=== PATIENT | female | born 1990 | race Caucasian/White ===

== ENCOUNTER 2016-12-10 18:54 | Emergency (ER) | payer OTHER ==
[~2016-12-10] VITALS: Ht 167.6 cm; Wt 58.3 kg
[~2016-12-10 18:54] MED LIST: BUTA1CAP17 PO
[2016-12-10 18:57] VITALS: TEMP 36.8; Ht 167.6 cm; Wt 58.3 kg
[2016-12-10] MEDS ORDERED: MONT1TAB3 PO (20:50)
[2016-12-10] MEDS ORDERED: CETI10TA84 PO (20:50)
[2016-12-10] MEDS ORDERED: MoRPHine SULFATE 10 MG/ML CARP/VIAL IV STA (21:18)
[2016-12-10] MEDS ORDERED: ONDANSETRON INJ 2 MG/ML 2 ML VIAL IV STA (21:18)
[2016-12-10 21:26] LABS: BASO % 0.3 %; BASO ABS # 0.02 K/uL (0-0.2); COMPLETE YES; EOS % 1.1 %; HEMATOCRIT 39.4 % (37-47); IG% 0.2 %; LYMPH % 25.9 %; LYMPH ABS # 1.62 K/uL (1.2-3.4); MEAN CELL VOLUME 89.1 fL (80-100); MEAN CORPUSCULAR HEMOGLOBIN 30.8 pg (25-34); MEAN CORPUSCULAR HGB CONC 34.5 g/dl (32-36); MEAN PLATELET VOLUME 10.7 fL (7.4-10.4); MONO % 10.4 %; NEUT % 62.1 %; PLATELET COUNT 201 K/uL (130-400); RED BLOOD COUNT 4.42 M/uL (4.2-5.4); WHITE BLOOD COUNT 6.25 K/uL (4.8-10.8)
[2016-12-10] MEDS ORDERED: MoRPHine SULFATE 4 MG/ML 1 ML CARP\\VIAL ONE (21:39)
[2016-12-10] MEDS ORDERED: MoRPHine SULFATE 2 MG/ML CARP ONE (21:39)
[2016-12-10 21:52] LABS: ALT/SGPT 16 U/L (12-78); BLOOD UREA NITROGEN 6 mg/dl (7-18); BUN/CREATININE RATIO 8.7 (10-20); CALCIUM 8.7 mg/dl (8.5-10.1); CARBON DIOXIDE 29 mmol/L (21-32); CHLORIDE 106 mmol/L (98-107); CREATININE 0.67 mg/dl (0.60-1.20); GLUCOSE 93 mg/dl (70-99); POTASSIUM 3.6 mmol/L (3.5-5.1); SODIUM 141 mmol/L (136-145)
[2016-12-10 21:55] LABS: ALKALINE PHOSPHATASE 64 U/L (45-117); AST/SGOT 9 U/L (15-37)
[2016-12-10 22:01] LABS: URINE APPEARANCE CLEAR (CLEAR); URINE BILIRUBIN NEG (NEG); URINE COLOR YELLOW; URINE EPITHELIAL CELL AUTO >30 /lpf (0-5); URINE NITRITE NEG (NEG); URINE SPECIFIC GRAVITY 1.005 (1.000-1.030); UROBILINOGEN NEG (NEG); ZZUR CULT IF INDIC CLEAN CATCH NO
[2016-12-10 22:02] LABS: MANUAL MICROSCOPIC REQUIRED? NO; REVIEW REQ? NO
[2016-12-10] MEDS ORDERED: HYDROmorphone INJ 0.5 MG/0.5 ML SYR IV STA (22:03)
[2016-12-10] MEDS ORDERED: OPTIRAY 320 IV PRN (22:30)
--- NOTE | 2016-12-10 23:03 | DIAGNOSTIC IMAGING REPORT ---
CT OF THE ABDOMEN AND PELVIS WITH CONTRAST CLINICAL HISTORY: Right lower quadrant pain. COMPARISON STUDY: CT of the abdomen and pelvis January 07, 2016. TECHNIQUE: Following IV administration of 116 mL of Optiray-320, axial images of the abdomen and pelvis were obtained from the lung bases to the proximal femurs. Images were reviewed in the axial, sagittal, and coronal planes. IV contrast was administered without complication. CT DOSE: 270.89 mGy.cm FINDINGS: Lung bases are clear. The liver, spleen, adrenal glands and pancreas are normal. There is a 2 mm right renal calculus. There are no ureteral calculi. There is no hydronephrosis. The caliber and wall thickness of small and large bowel are normal. The appendix is normal. An intrauterine device is appropriately positioned. A 2.5 cm low-attenuation right adnexal lesion is present. There is no pneumatosis, free air or portal venous gas. Skeletal structures are unremarkable. IMPRESSION: 1. No acute process within the abdomen or pelvis. Normal appendix. 2. 2.5 cm cyst or dominant follicle within the right ovary. 3. 2 mm right renal calculus. No ureteral calculi or hydronephrosis. 4. Small amount of fluid within the pelvis. Electronically signed by: Mainor Sibley M.D. 12/10/2016 11:02 PM Dictated Date/Time: 12/10/2016 10:58 PM
--- NOTE | 2016-12-10 23:29 | EMERGENCY ROOM VISIT NOTE ---
History First contact with patient: 20:51 Chief Complaint: ABDOMINAL PAIN Stated Complaint: ABDOMINAL PAIN, VOMITING Nursing Triage Summary: Pt complains of lower abdominal pain radiating to right flank. It started Wednesday. +vomiting Hx kidney stones History of Present Illness The patient is a 26 year old female w/ previous hx of nephrolithiasis 2 yrs ago , Hx of IUD placement who presents to the Emergency Room with complaints of progressive Lower abdominal pain x3 days, worse with moving. particularly in the suprapubic area. .She also reports nausea vomiting, fatigue, lightheaded, increased urinary urgency. Pt denies headache, fevers, chills, chest pain, shortness of breath, diarrhea, pain with urination, and melena. Review of Systems See HPI for pertinent positives & negatives. A total of 10 systems reviewed and were otherwise negative. Past Medical/Surgical History Medical Problems: (1) Kidney stones (2) Ovarian cyst Family History Patient reports no known family medical history. Social History Smoking Status: Former Smoker Marital Status: in relationship Housing Status: lives with family Occupation Status: employed Current/Historical Medications Scheduled Cetirizine (Zyrtec), 10 MG PO DAILY Montelukast Sodium (Singulair), 10 MG PO QPM Scheduled PRN Tpvgntgaft-Aolfziejpxrzq-Hiexk (Fioricet), 1 CAP PO Q4H PRN for Migraine Allergies Coded Allergies: No Known Allergies (Unverified , 12/10/16) Physical Exam Vital Signs Date Time Temp Pulse Resp B/P Pulse Ox O2 Delivery O2 Flow Rate FiO2 12/10/16 18:57 36.8 97 16 132/86 93 Room Air Physical Exam GENERAL: alert, well appearing, well nourished, no distress, non-toxic EYE EXAM: normal conjunctiva, PERRL and EOM's grossly intact NECK: supple, no nuchal rigidity, no adenopathy, non-tender LUNGS: Clear to auscultation. Normal chest wall mechanics HEART: no murmurs, S1 normal and S2 normal ABDOMEN: abdomen tenderness to palpation, suprapubic region and RLQ, normo- active bowel sounds, no masses, no rebound or guarding. SKIN: no rashes and no bruising UPPER EXTREMITIES: upper extremities are grossly normal. LOWER EXTREMITIES: No pitting edema. Medical Decision & Procedures ER Provider Diagnostic Interpretation: CT OF THE ABDOMEN AND PELVIS WITH CONTRAST CLINICAL HISTORY: Right lower quadrant pain. COMPARISON STUDY: CT of the abdomen and pelvis January 07, 2016. TECHNIQUE: Following IV administration of 116 mL of Optiray-320, axial images of the abdomen and pelvis were obtained from the lung bases to the proximal femurs. Images were reviewed in the axial, sagittal, and coronal planes. IV contrast was administered without complication. CT DOSE: 270.89 mGy.cm FINDINGS: Lung bases are clear. The liver, spleen, adrenal glands and pancreas are normal. There is a 2 mm right renal calculus. There are no ureteral calculi. There is no hydronephrosis. The caliber and wall thickness of small and large bowel are normal. The appendix is normal. An intrauterine device is appropriately positioned. A 2.5 cm low-attenuation right adnexal lesion is present. There is no pneumatosis, free air or portal venous gas. Skeletal structures are unremarkable. IMPRESSION: 1. No acute process within the abdomen or pelvis. Normal appendix. 2. 2.5 cm cyst or dominant follicle within the right ovary. 3. 2 mm right renal calculus. No ureteral calculi or hydronephrosis. 4. Small amount of fluid within the pelvis. Laboratory Results 12/10/16 21:14 Red Blood Count 4.42, Mean Corpuscular Volume 89.1, Mean Corpuscular Hemoglobin 30.8, Mean Corpuscular Hemoglobin Concent 34.5, Mean Platelet Volume 10.7, Neutrophils (%) (Auto) 62.1, Lymphocytes (%) (Auto) 25.9, Monocytes (%) (Auto) 10.4, Eosinophils (%) (Auto) 1.1, Basophils (%) (Auto) 0.3, Neutrophils # (Auto ) 3.88, Lymphocytes # (Auto) 1.62, Monocytes # (Auto) 0.65, Eosinophils # (Auto ) 0.07, Basophils # (Auto) 0.02 12/10/16 21:14 Test 12/10/16 21:13 12/10/16 21:14 Urine Color YELLOW Urine Appearance CLEAR (CLEAR) Urine pH 7.0 (4.5-7.5) Urine Specific [place] 1.005 (1.000-1.030) Urine Protein NEG (NEG) Urine Glucose (UA) NEG (NEG) Urine Ketones TRACE (NEG) Urine Occult Blood NEG (NEG) Urine Nitrite NEG (NEG) Urine Bilirubin NEG (NEG) Urine Urobilinogen NEG (NEG) Urine Leukocyte Esterase NEG (NEG) Urine WBC (Auto) 1-5 /hpf (0-5) Urine RBC (Auto) 0-4 /hpf (0-4) Urine Hyaline Casts (Auto) 1-5 /lpf (0-5) Urine Epithelial Cells (Auto) >30 /lpf (0-5) Urine Bacteria (Auto) NEG (NEG) Urine Test NEG (NEG) White Blood Count 6.25 K/uL (4.8-10.8) Red Blood Count 4.42 M/uL (4.2-5.4) Hemoglobin 13.6 g/dL (12.0-16.0) Hematocrit 39.4 % (37-47) Mean Corpuscular Volume 89.1 fL (80-100) Mean Corpuscular Hemoglobin 30.8 pg (25-34) Mean Corpuscular Hemoglobin Concent 34.5 g/dl (32-36) Platelet Count 201 K/uL (130-400) Mean Platelet Volume 10.7 fL (7.4-10.4) Neutrophils (%) (Auto) 62.1 % Lymphocytes (%) (Auto) 25.9 % Monocytes (%) (Auto) 10.4 % Eosinophils (%) (Auto) 1.1 % Basophils (%) (Auto) 0.3 % Neutrophils # (Auto) 3.88 K/uL (1.4-6.5) Lymphocytes # (Auto) 1.62 K/uL (1.2-3.4) Monocytes # (Auto) 0.65 K/uL (0.11-0.59) Eosinophils # (Auto) 0.07 K/uL (0-0.5) Basophils # (Auto) 0.02 K/uL (0-0.2) RDW Standard Deviation 41.7 fL (36.4-46.3) RDW Coefficient of Variation 12.8 % (11.5-14.5) Immature Granulocyte % (Auto) 0.2 % Immature Granulocyte # (Auto) 0.01 K/uL (0.00-0.02) Anion Gap 6.0 mmol/L (3-11) Est Creatinine Clear Calc Drug Dose 115.1 ml/min Estimated GFR () 138.6 Estimated GFR (Non- 119.6 BUN/Creatinine Ratio 8.7 (10-20) Calcium Level 8.7 mg/dl (8.5-10.1) Total Bilirubin 0.5 mg/dl (0.2-1) Direct Bilirubin < 0.1 mg/dl (0-0.2) Aspartate Amino Transf (AST/SGOT) 9 U/L (15-37) Alanine Aminotransferase (ALT/SGPT) 16 U/L (12-78) Alkaline Phosphatase 64 U/L (45-117) Total Protein 7.6 gm/dl (6.4-8.2) Albumin 4.3 gm/dl (3.4-5.0) Lipase 114 U/L (73-393) Medications Administered Medications (Trade) Dose Ordered Sig/Florentino Route Start Time Stop Time Status Last Admin Dose Admin Ondansetron HCl (Zofran Inj) 4 mg NOW STAT IV 12/10/16 21:18 12/10/16 21:21 DC 12/10/16 21:36 4 MG Morphine Sulfate (MoRPHine SULFATE INJ) 2 mg STK-MED ONCE .ROUTE 12/10/16 21:39 12/10/16 21:40 DC 12/10/16 21:36 2 MG Morphine Sulfate (MoRPHine SULFATE INJ) 4 mg STK-MED ONCE .ROUTE 12/10/16 21:39 12/10/16 21:40 DC 12/10/16 21:36 4 MG Hydromorphone HCl (Dilaudid Inj) 0.5 mg NOW STAT IV 12/10/16 22:03 12/10/16 22:05 DC 12/10/16 22:07 0.5 MG Ondansetron HCl (Zofran Inj) 4 mg NOW STAT IV 12/11/16 00:00 12/11/16 00:01 DC 12/11/16 00:06 4 MG Ketorolac Tromethamine (Toradol Inj) 30 mg NOW STAT IV 12/11/16 00:00 12/11/16 00:01 DC 12/11/16 00:05 30 MG Medical Decision 16 yo F w/ hx of nephrolithiasis, Hx of IUD p/w lower abdominal pain, tender in RLQ and suprapubic regions. Differential diagnoses includes but is not limited to gastritis, peptic ulcer disease, GERD, gallbladder disease, pancreatitis, small bowel obstruction, acute coronary syndrome, pericarditis, ischemic bowel, irritable bowel disease, irritable bowel syndrome, appendicitis, diverticulitis, malignancy, hernia, urinary tract infection, torsion, /ectopic , perforation, trauma, infectious. Abdominal Pain -CBC: wnl -BMP: unremarkable -UA: unremarkable , UTI ruled out, no Blood -CT Abdomen/Pelvis: 2.5 cm cyst or dominant follicle within the right ovary. 2 mm right renal calculus. No ureteral calculi or hydronephrosis. Small amount of fluid within the pelvis. -Transvaginal U/S: EFREN intraovarian flow present, Normal ovarian follicles, including dominant follicle Rt ovary, small amt of free fluid in pelvis, likely physiologic -Given Zofran IV 4 mg x2 -Given Morphine 4mg x1, Morphine 2 mg x1 -Given 30 mg Toradol -Given IV Dilaudid .5 mg Abdominal pain likely secondary to Rt Ovarian Cyst. RT renal calculus unlikely to be source of pain. UTI ruled out with UA Upon reevaluation, the patient is feeling better. I discussed the findings and the treatment plan with the patient and advised followup with [employer] Dr. Mclaughlin or PCP. She verbalizes agreement and understanding. She was discharged home. Impression Primary Impression: Right ovarian cyst Additional Impression: Renal calculus, right Departure Information Dispostion Home / Self-Care Referrals Pauline Miles D.O. (PCP) Patient Instructions My [facility] Resident Tracking Resident Involvement: Resident Care Provided Care Provided: Adult ED Problem Qualifiers
--- NOTE | 2016-12-10 23:57 | EMERGENCY ROOM VISIT NOTE ---
History Report prepared by [place]: Torin Ventura Under the Supervision of: Dr. Brandt Gant D.O. First contact with patient: 20:50 Chief Complaint: ABDOMINAL PAIN Stated Complaint: ABDOMINAL PAIN, VOMITING Nursing Triage Summary: Pt complains of lower abdominal pain radiating to right flank. It started Wednesday. +vomiting Hx kidney stones History of Present Illness The patient is a 26 year old female who presents to the Emergency Room with complaints of persistent abdominal pain for the past two days. The pain is described as a burning sensation and is mostly localized to the right lower abdomen. She also complains of nausea and vomiting that occurred yesterday. The pain is not consistent with past UTIs. She has a history of kidney stones. She has not had any previous abdominal surgeries. The patient is sexually active. She denies the possibility of secondary to IUD use. She denies any history of STDs. Patient denies headache, change in vision, fevers, chest pain, shortness of breath, diarrhea, urinary symptoms, melena, abnormal vaginal discharge. Source of History: patient Onset: two days ago Position: abdomen Quality: burning Timing: other (persistent) Associated Symptoms: + nausea, + vomiting, No SOB, No chest pain, No diarrhea, No fevers, No headache, No melena, No urinary symptoms Review of Systems See HPI for pertinent positives & negatives. A total of 10 systems reviewed and were otherwise negative. Past Medical & Surgical Medical Problems: (1) Kidney stones (2) Ovarian cyst Family History Patient reports no known family medical history. Social History Smoking Status: Former Smoker Marital Status: in relationship Housing Status: lives with family Occupation Status: employed Current/Historical Medications Scheduled Cetirizine (Zyrtec), 10 MG PO DAILY Montelukast Sodium (Singulair), 10 MG PO QPM Scheduled PRN Wzhwoxfwcx-Hsaufebwtxejo-Nywfk (Fioricet), 1 CAP PO Q4H PRN for Migraine Allergies Coded Allergies: No Known Allergies (Unverified , 12/10/16) Physical Exam Vital Signs Date Time Temp Pulse Resp B/P Pulse Ox O2 Delivery O2 Flow Rate FiO2 12/10/16 18:57 36.8 97 16 132/86 93 Room Air Physical Exam GENERAL: Sitting up in bed, disheveled, no acute distress. EYE EXAM: normal conjunctiva. OROPHARYNX: no exudate, no erythema, lips, buccal mucosa, and tongue normal and mucous membranes are moist NECK: supple, no nuchal rigidity, no adenopathy, non-tender LUNGS: Clear to auscultation. Normal chest wall mechanics HEART: no murmurs, S1 normal and S2 normal ABDOMEN: abdomen soft, tender to palpation in the right lower quadrant, normo- active bowel sounds, no masses, no rebound or guarding. BACK: Back is symmetrical on inspection and there is no deformity, no midline tenderness, no CVA tenderness. SKIN: no rashes and no bruising UPPER EXTREMITIES: upper extremities are grossly normal. LOWER EXTREMITIES: No pitting edema. NEURO EXAM: Normal sensorium, cranial nerves II-XII grossly intact, normal speech, no gross weakness of arms, no gross weakness of legs. Gross sensation intact. Medical Decision & Procedures ER Provider Diagnostic Interpretation: Radiologist results have been interpreted by the radiologist and reviewed by me. CT OF THE ABDOMEN AND PELVIS WITH CONTRAST CLINICAL HISTORY: Right lower quadrant pain. COMPARISON STUDY: CT of the abdomen and pelvis January 07, 2016. TECHNIQUE: Following IV administration of 116 mL of Optiray-320, axial images of the abdomen and pelvis were obtained from the lung bases to the proximal femurs. Images were reviewed in the axial, sagittal, and coronal planes. IV contrast was administered without complication. CT DOSE: 270.89 mGy.cm FINDINGS: Lung bases are clear. The liver, spleen, adrenal glands and pancreas are normal. There is a 2 mm right renal calculus. There are no ureteral calculi. There is no hydronephrosis. The caliber and wall thickness of small and large bowel are normal. The appendix is normal. An intrauterine device is appropriately positioned. A 2.5 cm low-attenuation right adnexal lesion is present. There is no pneumatosis, free air or portal venous gas. Skeletal structures are unremarkable. IMPRESSION: 1. No acute process within the abdomen or pelvis. Normal appendix. 2. 2.5 cm cyst or dominant follicle within the right ovary. 3. 2 mm right renal calculus. No ureteral calculi or hydronephrosis. 4. Small amount of fluid within the pelvis. Electronically signed by: Mainor Sibley M.D. 12/10/2016 11:02 PM Dictated Date/Time: 12/10/2016 10:58 PM Laboratory Results 12/10/16 21:14 Red Blood Count 4.42, Mean Corpuscular Volume 89.1, Mean Corpuscular Hemoglobin 30.8, Mean Corpuscular Hemoglobin Concent 34.5, Mean Platelet Volume 10.7, Neutrophils (%) (Auto) 62.1, Lymphocytes (%) (Auto) 25.9, Monocytes (%) (Auto) 10.4, Eosinophils (%) (Auto) 1.1, Basophils (%) (Auto) 0.3, Neutrophils # (Auto ) 3.88, Lymphocytes # (Auto) 1.62, Monocytes # (Auto) 0.65, Eosinophils # (Auto ) 0.07, Basophils # (Auto) 0.02 12/10/16 21:14 Test 12/10/16 21:13 12/10/16 21:14 Urine Color YELLOW Urine Appearance CLEAR (CLEAR) Urine pH 7.0 (4.5-7.5) Urine Specific [place] 1.005 (1.000-1.030) Urine Protein NEG (NEG) Urine Glucose (UA) NEG (NEG) Urine Ketones TRACE (NEG) Urine Occult Blood NEG (NEG) Urine Nitrite NEG (NEG) Urine Bilirubin NEG (NEG) Urine Urobilinogen NEG (NEG) Urine Leukocyte Esterase NEG (NEG) Urine WBC (Auto) 1-5 /hpf (0-5) Urine RBC (Auto) 0-4 /hpf (0-4) Urine Hyaline Casts (Auto) 1-5 /lpf (0-5) Urine Epithelial Cells (Auto) >30 /lpf (0-5) Urine Bacteria (Auto) NEG (NEG) Urine Test NEG (NEG) White Blood Count 6.25 K/uL (4.8-10.8) Red Blood Count 4.42 M/uL (4.2-5.4) Hemoglobin 13.6 g/dL (12.0-16.0) Hematocrit 39.4 % (37-47) Mean Corpuscular Volume 89.1 fL (80-100) Mean Corpuscular Hemoglobin 30.8 pg (25-34) Mean Corpuscular Hemoglobin Concent 34.5 g/dl (32-36) Platelet Count 201 K/uL (130-400) Mean Platelet Volume 10.7 fL (7.4-10.4) Neutrophils (%) (Auto) 62.1 % Lymphocytes (%) (Auto) 25.9 % Monocytes (%) (Auto) 10.4 % Eosinophils (%) (Auto) 1.1 % Basophils (%) (Auto) 0.3 % Neutrophils # (Auto) 3.88 K/uL (1.4-6.5) Lymphocytes # (Auto) 1.62 K/uL (1.2-3.4) Monocytes # (Auto) 0.65 K/uL (0.11-0.59) Eosinophils # (Auto) 0.07 K/uL (0-0.5) Basophils # (Auto) 0.02 K/uL (0-0.2) RDW Standard Deviation 41.7 fL (36.4-46.3) RDW Coefficient of Variation 12.8 % (11.5-14.5) Immature Granulocyte % (Auto) 0.2 % Immature Granulocyte # (Auto) 0.01 K/uL (0.00-0.02) Anion Gap 6.0 mmol/L (3-11) Est Creatinine Clear Calc Drug Dose 115.1 ml/min Estimated GFR () 138.6 Estimated GFR (Non- 119.6 BUN/Creatinine Ratio 8.7 (10-20) Calcium Level 8.7 mg/dl (8.5-10.1) Total Bilirubin 0.5 mg/dl (0.2-1) Direct Bilirubin < 0.1 mg/dl (0-0.2) Aspartate Amino Transf (AST/SGOT) 9 U/L (15-37) Alanine Aminotransferase (ALT/SGPT) 16 U/L (12-78) Alkaline Phosphatase 64 U/L (45-117) Total Protein 7.6 gm/dl (6.4-8.2) Albumin 4.3 gm/dl (3.4-5.0) Lipase 114 U/L (73-393) Laboratory results per my review. Medications Administered Medications (Trade) Dose Ordered Sig/Florentino Route Start Time Stop Time Status Last Admin Dose Admin Ondansetron HCl (Zofran Inj) 4 mg NOW STAT IV 12/10/16 21:18 12/10/16 21:21 DC 12/10/16 21:36 4 MG Morphine Sulfate (MoRPHine SULFATE INJ) 2 mg STK-MED ONCE .ROUTE 12/10/16 21:39 12/10/16 21:40 DC 12/10/16 21:36 2 MG Morphine Sulfate (MoRPHine SULFATE INJ) 4 mg STK-MED ONCE .ROUTE 12/10/16 21:39 12/10/16 21:40 DC 12/10/16 21:36 4 MG Hydromorphone HCl (Dilaudid Inj) 0.5 mg NOW STAT IV 12/10/16 22:03 12/10/16 22:05 DC 12/10/16 22:07 0.5 MG Ondansetron HCl (Zofran Inj) 4 mg NOW STAT IV 12/11/16 00:00 12/11/16 00:01 DC 12/11/16 00:06 4 MG Ketorolac Tromethamine (Toradol Inj) 30 mg NOW STAT IV 12/11/16 00:00 12/11/16 00:01 DC 12/11/16 00:05 30 MG ED Course ED COURSE: Vital signs were reviewed and were normal. The patients medical record was reviewed The above diagnostic studies were performed and reviewed. ED treatments and interventions as stated above. 2049: The patient was evaluated by my resident. 2108: The patient was evaluated in room A12b. A complete history and physical examination was performed. 2117: Zofran 4 mg IV, Morphine Sulfate 6 mg IV. 2202: Dilaudid 0.5 mg IV. 3: Patient updated by the resident. Ultrasound ordered. 2315: I personally updated the patient. 0015: Upon reevaluation, the patient is doing well.I discussed my findings with the patient and she understands and agrees with the treatment plan. Based on the patients age, coexisting illnesses, exam and lab findings the decision to treat as an outpatient was made. The patient remained stable while under my care. The patient appeared well at the time of discharge. Medical Decision Differential diagnoses includes but is not limited to gastritis, peptic ulcer disease, GERD, gallbladder disease, pancreatitis, small bowel obstruction, acute coronary syndrome, pericarditis, ischemic bowel, irritable bowel disease, irritable bowel syndrome, appendicitis, diverticulitis, malignancy, hernia, urinary tract infection, torsion, [/ectopic (if female)], perforation, trauma, infectious. Patient is a 18-year-old female who presents the ER for right lower quadrant abdominal pain which is been present since Wednesday. She notes that has been worsening. She has been vomiting intermittently. No previous abdominal surgeries. No fevers. The vomiting did start yesterday and normal bowel movements. UA shows no UTI or hematuria to suggest a stone. CT of her abdomen pelvis shows a large right ovarian cyst. All sound was performed and shows no signs of torsion. Patient was given IV narcotics with improvement of her pain. She is discharged follow-up with her primary care doctor in regards to her right ovarian cyst. Labs were otherwise unremarkable which included an unremarkable CBC, BMP, LFTs, bilirubin and lipase. Ultrasound shows bilateral flow to both ovaries. Patient was updated bedside and discharged with an ovarian cyst follow-up with her primary care doctor. She is instructed not to drive, work, operate heavy machinery for the next 12 hours. Discussed with Pt concerning signs and symptoms to watch out for. Pt was instructed to follow up with their PCP and discussed with the patient their option to return to the ED at anytime for persistent or worsening symptoms. The appropriate anticipatory guidance and out-patient management, including indications for return to the emergency department, were explained at length to the patient and understood. Impression Primary Impression: Ovarian cyst Additional Impression: Right lower quadrant abdominal pain Scribe Attestation The scribe's documentation has been prepared under my direction and personally reviewed by me in its entirety. I confirm that the note above accurately reflects all work, treatment, procedures, and medical decision making performed by me. Departure Information Dispostion Home / Self-Care Referrals Pauline Miles D.O. (PCP) Forms HOME CARE DOCUMENTATION FORM, IMPORTANT VISIT INFORMATION Patient Instructions ED Cyst Ovarian, [facility] Additional Instructions Please follow up with your primary care doctor with in the next 24 hours. Any worsening of your symptoms, please return to the ED immediately. This includes fevers greater than 100.4, worsening pain, vaginal discharge, persistent vomiting or diarrhea, or any other concerning signs or symptoms from your standpoint. Please take Motrin or Tylenol as needed for pain. Problem Qualifiers Primary Impression: Ovarian cyst Laterality: right Qualified Codes: N83.201 - Unspecified ovarian cyst, right side
[2016-12-11] MEDS ORDERED: KETOROLAC TROMETHAMINE 30 MG/ML VIAL IV STA
[2016-12-11] MEDS ORDERED: ONDANSETRON INJ 2 MG/ML 2 ML VIAL IV STA
[2016-12-11 00:57] VITALS: BP 127/81; PULSE 84; O2SAT 95
--- NOTE | 2016-12-11 07:20 | DIAGNOSTIC IMAGING REPORT ---
EXAMINATION: PELVIC ULTRASOUND CLINICAL HISTORY: RLQ PAIN PAIN COMPARISON STUDY: 09/26/2008 FINDINGS: The uterus measured 8 cm. The endometrial stripe measured 4 mm. Intrauterine device present within the central canal. The right ovary measured 3.5 cm with normal vascular flow. 2 cm follicular cysts.. The left ovary measured 2.6 cm maximum dimension with normal vascular flow. There is no ultrasonographic evidence of ovarian torsion. It should be noted that ovarian torsion can be present with normal Doppler ultrasonographic findings. There was no evidence of pathologic free pelvic fluid. IMPRESSION: 2 cm right ovarian cyst. Intrauterine device within the central uterine canal. Otherwise negative study Electronically signed by: Shaheed Rocha M.D. 12/11/2016 7:18 AM Dictated Date/Time: 12/11/2016 7:17 AM
== END 2016-12-11 00:58 | disposition home or self-care (01) ==
LOC: C.EDB 18:55 → C.EDA 12-11 00:58
DX: N83.201 Unspecified ovarian cyst, right side (principal); N20.0 Calculus of kidney; R10.31 Right lower quadrant pain; Z87.442 Personal history of urinary calculi; Z87.891 Personal history of nicotine dependence

== ENCOUNTER 2017-09-16 08:39 | Emergency (ER) | payer OTHER ==
[~2017-09-16] VITALS: Ht 167.6 cm; Wt 60.2 kg
[~2017-09-16 08:39] MED LIST changes: +CETI10TA84 PO; +MONT1TAB3 PO
[2017-09-16 08:41] VITALS: TEMP 36.8; Ht 167.6 cm; Wt 60.2 kg
[2017-09-16] MEDS ORDERED: MoRPHine SULFATE 4 MG/ML 1 ML CARP\\VIAL IV STA ×2 (09:01→11:06)
[2017-09-16] MEDS ORDERED: ONDANSETRON INJ 2 MG/ML 2 ML VIAL IV STA (09:01)
[2017-09-16] MEDS ORDERED: SODIUM CHLORIDE 0.9% 1000ML 1,000 ML IV STA (09:01)
[2017-09-16 09:36] LABS: BASO % 0.4 %; BASO ABS # 0.02 K/uL (0-0.2); EOS % 1.2 %; EOS ABS # 0.07 K/uL (0-0.5); HEMATOCRIT 42.2 % (37-47); HEMOGLOBIN 14.5 g/dL (12.0-16.0); IG# 0.04 K/uL (0.00-0.02); LYMPH % 18.2 %; LYMPH ABS # 1.04 K/uL (1.2-3.4); MEAN CELL VOLUME 90.6 fL (80-100); MEAN CORPUSCULAR HEMOGLOBIN 31.1 pg (25-34); MEAN CORPUSCULAR HGB CONC 34.4 g/dl (32-36); MEAN PLATELET VOLUME 10.5 fL (7.4-10.4); MONO % 8.6 %; MONO ABS # 0.49 K/uL (0.11-0.59); NEUT % 70.9 %; NEUT ABS # 4.04 K/uL (1.4-6.5); PLATELET COUNT 231 K/uL (130-400); RED CELL DISTRIBUTION WIDTH CV 12.8 % (11.5-14.5)
[2017-09-16 09:49] LABS: ALBUMIN 4.1 gm/dl (3.4-5.0); CREATININE 0.77 mg/dl (0.60-1.20); POTASSIUM 4.3 mmol/L (3.5-5.1)
[2017-09-16 09:52] LABS: TOTAL PROTEIN 7.6 gm/dl (6.4-8.2)
--- NOTE | 2017-09-16 10:29 | DIAGNOSTIC IMAGING REPORT ---
ABD/PELVIS WITHOUT FOR STONE CT DOSE: 782.53 mGy.cm HISTORY: Flank pain. Nausea. hx of stones, urinary symptom, pain and vomiting TECHNIQUE: Multiaxial CT images of the abdomen and pelvis were performed without the use of intravenous and oral contrast according to the standard department stone protocol. A dose lowering technique was utilized adhering to the principles of ALARA. COMPARISON STUDY: 12/10/2016 FINDINGS: Lung bases are clear. Liver spleen and pancreas are uniform. There are several nonobstructing renal calcifications bilaterally. There is no evidence for renal hydronephrosis. Mild extrarenal pelves are noted within the kidneys bilaterally unchanged in the prior study. The bowel pattern overall is nonobstructive. The appendix is unremarkable. There is trace amount of radiodense material within the appendix. No evidence for abscess or collection. Several small right and to a lesser extent left ovarian follicular cysts. Trace amount of free fluid within the pelvic cul-de-sac most likely physiologic. Intrauterine device within the central canal the ureters. Bladder is midline. IMPRESSION: 1. The small right and to a lesser extent left ovarian follicular cyst.. 2. Several nonobstructing renal calcifications. 3. No evidence for an obstructing urinary tract calculus. 4. Normal appendix 5. Nonobstructive bowel pattern. The above report was generated using voice recognition software. It may contain grammatical, syntax or spelling errors. Electronically signed by: Shaheed Rocha M.D. 09/16/2017 10:28 AM Dictated Date/Time: 09/16/2017 10:20 AM
[2017-09-16] MEDS ORDERED: PHEN-876 PO (11:10)
[2017-09-16] MEDS ORDERED: ONDA4TAB10 SL (11:10)
[2017-09-16 11:27] VITALS: BP 126/79; PULSE 65; O2SAT 98
--- NOTE | 2017-09-17 16:12 | EMERGENCY ROOM VISIT NOTE ---
ED Visit Note First contact with patient: 08:45 Chief Complaint: Flank pain and urinary symptoms. History of Present Illness: Ms. Fam is a 26-year-old white female who ambulates into the ED complaining of right flank pain, urinary symptoms and nausea/vomiting. Historically patient reports she has a history of kidney stones and ovarian cyst rupture. She reports pain and the symptoms remind her of her previous stone. Patient reports approximately 2 days ago she noted that she started having some intermittent nausea. This was also associated with vaginal itching and discharge, burning urination, increased urinary frequency and urge but no gross hematuria. She reports she has been using Monistat for her vaginal itching and discharge and has had almost complete relief of her discomfort and discharge. This morning after waking approximately one hour ago she reports she had acute onset of right flank pain. Since that time the pain has been constant. She describes her pain as a deep achy sensation. She rates her discomfort 7/10. Her pain is nonradiating. She has some mild relief when she lies in the knee- chest position. She has not identified any aggravating factors related to the pain. She has not taken any medications for pain prior to arrival at the hospital. She continues to have the associated symptoms as noted above but has had noted increase in nausea but did have one episode of vomiting this morning. She denies fevers, chills, sweats, eruptions, skin color changes, upper respiratory tract symptoms, chest pain, shortness of breath, abdominal pain, diarrhea, constipation, vaginal bleeding. Review of Systems: As noted above in history of present illness. All body systems were reviewed and found to be negative as noted above. Past Medical History: As previously noted. Current Medications: Evette Wilkins Allergies to Medications: Patient denies. Social History: Patient is currently employed; she feels safe in her home environment; she denies tobacco use and admits to alcohol use. Physical Examination: Vital Signs: Date Time Temp Pulse Resp B/P (MAP) Pulse Ox O2 Delivery O2 Flow Rate FiO2 09/16/17 11:27 65 18 126/79 98 09/16/17 10:33 93 18 123/82 100 09/16/17 09:21 100 09/16/17 08:41 36.8 115 20 128/81 97 Room Air GENERAL: 26-year-old female in moderate distress due to pain, nontoxic-appearing , afebrile and hemodynamically stable. NEUROLOGICAL: Awake, alert and oriented to person, place and time. Answering questions appropriately and following commands. Normal gait. Good hand eye coordination. No focal motor sensory deficits. SKIN: Warm, dry and pink. No soft tissue eruptions or trauma noted. HEENT: Atraumatic and normocephalic. PERRL. Sclera white and conjunctiva pink. No drainage from naris. Oral cavity moist and pink. Pharynx is nonerythematous or edematous. Speech normal. No lymphadenopathy. Trachea midline. No jugular venous distention. BACK: No tenderness over the bony spine. No CVA tenderness. THORAX: Lungs sounds are clear to auscultation and equal bilaterally with symmetrical chest wall. No wheezing, rales or rhonchi. No crepitus, tenderness , subcutaneous air or deformities noted. HEART: Regular rate and rhythm. No gallops, rubs or murmurs are appreciated. ABDOMEN: Flat, soft and nontender. Positive bowel sounds in all quadrants. No guarding, rigidity or organomegaly. EXTREMITIES: Moves all extremities well on command and with purpose. All distal neurovascular statuses are intact and equal bilaterally. No calf tenderness or cords. ED Course: Patient is assessed as noted above. Patient's medication list was reviewed. Laboratory Testing: Test 09/16/17 09:06 09/16/17 09:10 Range/Units Urine Color YELLOW Urine Appearance CLOUDY CLEAR Urine pH 5.0 4.5-7.5 Urine Specific [place] 1.018 1.000-1.030 Urine Protein NEG NEG Urine Glucose (UA) NEG NEG Urine Ketones NEG NEG Urine Occult Blood NEG NEG Urine Nitrite NEG NEG Urine Bilirubin NEG NEG Urine Urobilinogen NEG NEG Urine Leukocyte Esterase NEG NEG Urine WBC (Auto) 1-5 0-5 /hpf Urine RBC (Auto) 0-4 0-4 /hpf Urine Hyaline Casts (Auto) 1-5 0-5 /lpf Urine Epithelial Cells (Auto) >30 0-5 /lpf Urine Bacteria (Auto) PRESENT NEG Urine Test NEG NEG White Blood Count 5.70 4.8-10.8 K/uL Red Blood Count 4.66 4.2-5.4 M/uL Hemoglobin 14.5 12.0-16.0 g/dL Hematocrit 42.2 37-47 % Mean Corpuscular Volume 90.6 80-100 fL Mean Corpuscular Hemoglobin 31.1 25-34 pg Mean Corpuscular Hemoglobin Concent 34.4 32-36 g/dl Platelet Count 231 130-400 K/uL Mean Platelet Volume 10.5 7.4-10.4 fL Neutrophils (%) (Auto) 70.9 % Lymphocytes (%) (Auto) 18.2 % Monocytes (%) (Auto) 8.6 % Eosinophils (%) (Auto) 1.2 % Basophils (%) (Auto) 0.4 % Neutrophils # (Auto) 4.04 1.4-6.5 K/uL Lymphocytes # (Auto) 1.04 1.2-3.4 K/uL Monocytes # (Auto) 0.49 0.11-0.59 K/uL Eosinophils # (Auto) 0.07 0-0.5 K/uL Basophils # (Auto) 0.02 0-0.2 K/uL RDW Standard Deviation 42.0 36.4-46.3 fL RDW Coefficient of Variation 12.8 11.5-14.5 % Immature Granulocyte % (Auto) 0.7 % Immature Granulocyte # (Auto) 0.04 0.00-0.02 K/uL Sodium Level 137 136-145 mmol/L Potassium Level 4.3 3.5-5.1 mmol/L Chloride Level 107 98-107 mmol/L Carbon Dioxide Level 27 21-32 mmol/L Anion Gap 3.0 3-11 mmol/L Blood Urea Nitrogen 6 7-18 mg/dl Creatinine 0.77 0.60-1.20 mg/dl Est Creatinine Clear Calc Drug Dose 101.8 ml/min Estimated GFR () 121.8 Estimated GFR (Non- 105.1 BUN/Creatinine Ratio 8.3 10-20 Random Glucose 93 70-99 mg/dl Calcium Level 9.0 8.5-10.1 mg/dl Total Bilirubin 0.9 0.2-1 mg/dl Direct Bilirubin 0.2 0-0.2 mg/dl Aspartate Amino Transf (AST/SGOT) 11 15-37 U/L Alanine Aminotransferase (ALT/SGPT) 17 12-78 U/L Alkaline Phosphatase 50 45-117 U/L Total Protein 7.6 6.4-8.2 gm/dl Albumin 4.1 3.4-5.0 gm/dl Lipase 86 73-393 U/L Microbiology Results 09/16/17 Urine Culture: Pending. Noncontrast Abdominal/Pelvic CT: Reviewed by myself and read by the radiologist showing small right and to the Catarino extent left ovarian follicle cyst, several nonobstructing renal calculi, no evidence of obstructing urinary tract calculus, normal-appearing appendix and bowel gas pattern. Patient was hydrated with normal saline and received 4 mg of morphine IV for pain and 4 mg of Zofran IV for nausea. Patient was reassessed total times during her stay in the emergency department. On her last reassessment she requested additional pain medication and received an additional 4 mg of morphine IV. Patient's case was reviewed with Dr. Acosta; we agreed on diagnostic approach, treatment, disposition and plan. Patient was educated about today's findings and instructed on her treatment plan ; she verbalized understanding and agreement with this plan. Clinical Impression: Right flank pain. Urinary tract infection symptoms. Decision-Making: Initially my differential diagnosis I considered uterine calculus, renal obstruction, pyelonephritis, hepatitis, pancreatitis, cholecystitis and other causes. Disposition: Patient discharged home in stable condition accompanied by family member; prior to departure she was reassessed and subjectively reported she was feeling better. She rated her discomfort 4/10 and reported resolution of nausea. Plan: Patient was encouraged use ibuprofen or acetaminophen as needed for pain or alternating every 3 hours for persistent pain. Patient was encouraged stay well-hydrated with increased clear fluids. Patient was prescribed Zofran 4 mg every 6 hours as needed for pain. Patient was prescribed Pyridium for urinary burning and instructed on achieves per Patient was encouraged to follow-up with family physician for recheck in 2-3 days. Patient was encouraged return ED for worsening/uncontrolled pain, fevers, uncontrolled vomiting, worsening urinary symptoms or any new/concerning symptoms.
== END 2017-09-16 11:28 | disposition home or self-care (01) ==
LOC: C.EDB 08:40 → C.EDA 11:28
DX: R10.9 Unspecified abdominal pain (principal); R30.0 Dysuria; R35.0 Frequency of micturition; R11.0 Nausea

== ENCOUNTER 2018-01-12 12:38 | Emergency (ER) | payer BC ==
[~2018-01-12] VITALS: Ht 167.6 cm; Wt 58.4 kg
[~2018-01-12 12:38] MED LIST changes: -BUTA1CAP17 PO; +ONDA4TAB10 SL
[2018-01-12 12:47] VITALS: TEMP 37; Ht 167.6 cm; Wt 58.4 kg
[2018-01-12] MEDS ORDERED: ATV/1 PO (13:10)
[2018-01-12] MEDS ORDERED: LORAZEPAM 2 MG/ML 1 ML VIAL IV STA ×2 (13:29→14:48)
[2018-01-12 13:33] LABS: BASO % 0.4 %; BASO ABS # 0.03 K/uL (0-0.2); EOS % 0.9 %; EOS ABS # 0.06 K/uL (0-0.5); HEMATOCRIT 41.5 % (37-47); HEMOGLOBIN 14.4 g/dL (12.0-16.0); IG# 0.02 K/uL (0.00-0.02); LYMPH % 17.8 %; LYMPH ABS # 1.19 K/uL (1.2-3.4); MEAN CELL VOLUME 89.6 fL (80-100); MEAN CORPUSCULAR HEMOGLOBIN 31.1 pg (25-34); MEAN CORPUSCULAR HGB CONC 34.7 g/dl (32-36); MONO % 6.7 %; MONO ABS # 0.45 K/uL (0.11-0.59); NEUT % 73.9 %; NEUT ABS # 4.95 K/uL (1.4-6.5); PLATELET COUNT 225 K/uL (130-400); RED CELL DISTRIBUTION WIDTH CV 12.7 % (11.5-14.5); RED CELL DISTRIBUTION WIDTH SD 41.4 fL (36.4-46.3)
[2018-01-12 13:50] LABS: ALBUMIN 4.3 gm/dl (3.4-5.0); CALCIUM 8.8 mg/dl (8.5-10.1); CREATININE 0.7 mg/dl (0.60-1.20); POTASSIUM 3.7 mmol/L (3.5-5.1)
[2018-01-12 14:01] LABS: TOTAL PROTEIN 7.6 gm/dl (6.4-8.2)
--- NOTE | 2018-01-12 16:24 | EMERGENCY ROOM VISIT NOTE ---
History Report prepared by Jayjay: Bernardo Al Under the Supervision of: Dr. Ervin Ospina M.D. First contact with patient: 12:54 Chief Complaint: ANXIETY Stated Complaint: PANIC ATTACK, DEPRESSION History of Present Illness The patient is a 27 year old female who presents to the Emergency Room with complaints of constant anxiety beginning 2 hours ago. She has a history of anxiety and depression. She believes being in the hospital is worsening her anxiety. The patient states that she had a panic attack while at work today. She states that she was triggered today by a conversation with her boyfriend today. She states that she knows the conversation should not have her so worked up. The patient took Ativan about two hours ago, but nothing has improved her symptoms. She is on Ativan as needed for panic attacks. She states that she had an anxiety attack yesterday, as well as last week without any identifiable sources. She notes that she had not had a panic attack in nine months prior to these. The patient has a history of frequent migraines and chronic nausea. She currently complains of SOB. Pt denies LOC, fevers, chills, diaphoresis, visual changes, neck pain, chest pain, vomiting, abdominal pain, back pain, melena, hematochezia, urinary symptoms, numbness, weakness, lymphadenopathy, rash, or other complaints. She was previously on Celexa, but was taken off for . 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 The patient reports feeling suicidal last week with a vague plan to overdose, but currently does not feel suicidal. Source of History: patient Onset: 2 hours ago Quality: other (anxiety) Timing: constant Modifying Factors (Worsening): other (being in the hospital) Associated Symptoms: + SOB Review of Systems See HPI for pertinent positives and negatives. A total of ten systems were reviewed and were otherwise negative. Past Medical & Surgical Medical Problems: (1) Kidney stones (2) Ovarian cyst Family History Patient reports no known family medical history. Social History Smoking Status: Current Every Day Smoker Marital Status: in relationship Housing Status: lives with family Occupation Status: employed Current/Historical Medications Scheduled Cetirizine (Zyrtec), 10 MG PO HS Montelukast Sodium (Singulair), 10 MG PO QPM Ondasetron Odt (Zofran Odt), 4 MG SL Q6H Scheduled PRN Lorazepam (Ativan), 1 MG PO Q6H PRN for Anxiety Allergies Coded Allergies: No Known Allergies (Unverified , 01/12/18) Physical Exam Vital Signs Date Time Temp Pulse Resp B/P (MAP) Pulse Ox O2 Delivery O2 Flow Rate FiO2 01/12/18 17:06 102 18 123/83 98 Room Air 01/12/18 15:28 88 20 124/83 98 Room Air 01/12/18 13:57 98 139/98 98 Room Air 01/12/18 12:47 37.0 140 20 161/68 99 Room Air Physical Exam GENERAL: Awake, alert, very anxious appearing, mildly stressed, no distress HENT: Normocephalic, atraumatic. TM's normal. Oropharynx unremarkable. EYES: PERRL. EOMI. Normal conjunctiva. Sclera non-icteric. NECK: Supple. No nuchal rigidity. FROM. No JVD or bruit. RESPIRATORY: Clear. Breath sounds equal. No wheezes. No rhonchi. Normal respiratory effort. CARDIAC: Tachycardic rate. Regular rhythm. No murmurs. No rubs. No JVD. ABDOMEN: Soft, non distended. No tenderness to palpation. No rebound or guarding. No masses. MUSCULOSKELETAL: Unremarkable. No edema. No discoloration. Gross motor strength symmetric. NEURO: Cranial nerves 2-12 grossly intact. Normal sensorium. No sensory or motor deficits noted. Speech normal. No pronator drift. SKIN: No rash or jaundice noted. LYMPH: No adenopathy. PSYCH: Very anxious mood and affect. No suicidal ideation. No homicidal ideation. Tearful. Medical Decision & Procedures Laboratory Results 01/12/18 13:16 Red Blood Count 4.63, Mean Corpuscular Volume 89.6, Mean Corpuscular Hemoglobin 31.1, Mean Corpuscular Hemoglobin Concent 34.7, Mean Platelet Volume 10.0, Neutrophils (%) (Auto) 73.9, Lymphocytes (%) (Auto) 17.8, Monocytes (%) (Auto) 6.7, Eosinophils (%) (Auto) 0.9, Basophils (%) (Auto) 0.4, Neutrophils # (Auto) 4.95, Lymphocytes # (Auto) 1.19, Monocytes # (Auto) 0.45, Eosinophils # (Auto) 0.06, Basophils # (Auto) 0.03 01/12/18 13:16 Test 01/12/18 13:05 01/12/18 13:16 Urine Color YELLOW Urine Appearance CLEAR (CLEAR) Urine pH 5.0 (4.5-7.5) Urine Specific [place] 1.008 (1.000-1.030) Urine Protein NEG (NEG) Urine Glucose (UA) NEG (NEG) Urine Ketones NEG (NEG) Urine Occult Blood NEG (NEG) Urine Nitrite NEG (NEG) Urine Bilirubin NEG (NEG) Urine Urobilinogen NEG (NEG) Urine Leukocyte Esterase NEG (NEG) Urine Opiates Screen NEG (NEG) Urine Methadone, Qualitative NEG (NEG) Urine Barbiturates NEG (NEG) Urine Phencyclidine (PCP) Level NEG (NEG) Ur Amphetamine/Methamphetamine NEG (NEG) MDMA (Ecstasy) Screen NEG (NEG) Urine Benzodiazepines Screen NEG (NEG) Urine Cocaine Metabolite NEG (NEG) Urine Marijuana (THC) POS (NEG) White Blood Count 6.70 K/uL (4.8-10.8) Red Blood Count 4.63 M/uL (4.2-5.4) Hemoglobin 14.4 g/dL (12.0-16.0) Hematocrit 41.5 % (37-47) Mean Corpuscular Volume 89.6 fL (80-100) Mean Corpuscular Hemoglobin 31.1 pg (25-34) Mean Corpuscular Hemoglobin Concent 34.7 g/dl (32-36) Platelet Count 225 K/uL (130-400) Mean Platelet Volume 10.0 fL (7.4-10.4) Neutrophils (%) (Auto) 73.9 % Lymphocytes (%) (Auto) 17.8 % Monocytes (%) (Auto) 6.7 % Eosinophils (%) (Auto) 0.9 % Basophils (%) (Auto) 0.4 % Neutrophils # (Auto) 4.95 K/uL (1.4-6.5) Lymphocytes # (Auto) 1.19 K/uL (1.2-3.4) Monocytes # (Auto) 0.45 K/uL (0.11-0.59) Eosinophils # (Auto) 0.06 K/uL (0-0.5) Basophils # (Auto) 0.03 K/uL (0-0.2) RDW Standard Deviation 41.4 fL (36.4-46.3) RDW Coefficient of Variation 12.7 % (11.5-14.5) Immature Granulocyte % (Auto) 0.3 % Immature Granulocyte # (Auto) 0.02 K/uL (0.00-0.02) Anion Gap 5.0 mmol/L (3-11) Est Creatinine Clear Calc Drug Dose 109.3 ml/min Estimated GFR () 135.7 Estimated GFR (Non- 117.1 BUN/Creatinine Ratio 10.2 (10-20) Calcium Level 8.8 mg/dl (8.5-10.1) Total Bilirubin 1.1 mg/dl (0.2-1) Direct Bilirubin 0.3 mg/dl (0-0.2) Aspartate Amino Transf (AST/SGOT) 12 U/L (15-37) Alanine Aminotransferase (ALT/SGPT) 16 U/L (12-78) Alkaline Phosphatase 55 U/L (45-117) Total Protein 7.6 gm/dl (6.4-8.2) Albumin 4.3 gm/dl (3.4-5.0) Thyroid Stimulating Hormone (TSH) 0.704 uIu/ml (0.300-4.500) Human Chorionic Gonadotropin, Qual NEG (NEG) Salicylates Level < 1.7 mg/dl (2.8-20) Acetaminophen Level < 2 ug/ml (10-30) Ethyl Alcohol mg/dL < 3.0 mg/dl (0-3) Laboratory results reviewed by me Medications Administered Medications (Trade) Dose Ordered Sig/Florentino Route Start Time Stop Time Status Last Admin Dose Admin Lorazepam (Ativan Inj) 1 mg NOW STAT IV 01/12/18 13:29 01/12/18 13:30 DC 01/12/18 13:50 1 MG Hydroxyzine HCl (Vistaril Tab) 50 mg NOW STAT PO 01/12/18 17:24 01/12/18 17:25 DC 01/12/18 17:33 50 MG ECG Per My Interpretation Indication: SOB/dyspnea Rate (beats per minute): 116 Rhythm: sinus tachycardia Findings: other (No ST elevation. No PVCs. Normal intervals. ) ED Course 1323: The patient was evaluated in room A7. A complete history and physical exam was performed. 1329: Ordered Ativan Inj 1 mg IV. 1448: Ordered Ativan Inj 1 mg IV. 1715: I spoke with the psychiatric lead case manager. She feels the patient would be appropriate for outpatient care. A referral was [facility]. 1724: Ordered Vistaril Tab 50 mg PO. 1730: I reevaluated the patient. Discussed results and discharge instructions: she verbalized understanding and agreement. The patient is ready for discharge. Medical Decision Prior records/ancillary studies reviewed. Triage Nursing notes reviewed and agree them. The patient's history was concerning for possible psychiatric disturbance. Differential diagnosis: Etiologies such as mood disorder, infection, hypoglycemia, electrolyte abnormalities, cardiac sources, intracerebral event, toxicologic, neurologic, as well as others were entertained. Physical examination: The physical examination was performed as above. The patient was very anxious. Tachycardia noted. No emergent medical pathologies were noted. ER treatment provided: IV Ativan 1 mg The patient was still anxious. Second dose of IV Ativan was ordered but then the patient was feeling better and declined. On reassessment the patient felt better. Just prior to discharge the patient was given a dose of Atarax so that symptoms do not return. Diagnostic interpretation by me: The electrocardiogram was negative for pathologic change. The labs revealed an unremarkable CBC and chemistry panel. Toxicology screen was unremarkable except for marijuana. Imaging studies: Deferred The patient was evaluated by the psychiatric lead case manager. She has no criteria for involuntary commitment. She prefers to treat this as an outpatient. She will follow-up with her PCP. Outpatient services were arranged and referral will be [place] [facility] [place] [facility] The patient feels comfortable with this plan. If she worsens in any way. She will be back. By the evaluation outlined above other emergent etiologies such as those listed in the differential, as well as others, were deemed relatively unlikely. The patient was educated about the findings as listed above. All questions were answered and the patient was pleased with the treatment. Return instructions were outlined and the patient was discharged in stable condition. Medication Reconcilliation Current Medication List: was personally reviewed by me Blood Pressure Screening Patient's blood pressure: Normal blood pressure Blood pressure disposition: Did not require urgent referral Impression Primary Impression: Moderate mood disorder Additional Impression: Acute anxiety Scribe Attestation The scribe's documentation has been prepared under my direction and personally reviewed by me in its entirety. I confirm that the note above accurately reflects all work, treatment, procedures, and medical decision making performed by me. Departure Information Dispostion Home / Self-Care Referrals Pauline Miles D.O. (PCP) Patient Instructions My [facility] Additional Instructions PSYCHIATRIC INSTRUCTIONS: Continue your current medications. Return to the ER for severe anxiety or depression, thoughts of hurting yourself or others, inability to function, hallucinations, worsening of your condition, or as needed. Follow up with outpatient services as arranged by the psychiatric lead case manager. Follow up with your primary care physician this week for a recheck of your current condition and continued care. Problem Qualifiers
[2018-01-12 17:06] VITALS: BP 123/83; PULSE 102; O2SAT 98
[2018-01-12] MEDS ORDERED: hydrOXYzine HCL 25 MG TAB PO STA (17:24)
== END 2018-01-12 18:14 | disposition home or self-care (01) ==
LOC: C.EDB 12:39 → C.EDA 18:14
DX: F41.9 Anxiety disorder, unspecified (principal); F32.9 Major depressive disorder, single episode, unspecified; Z87.442 Personal history of urinary calculi; F17.210 Nicotine dependence, cigarettes, uncomplicated; Z79.899 Other long term (current) drug therapy

== ENCOUNTER 2022-10-01 13:32 | Inpatient (IN) ==
[2022-10-01] MEDS ORDERED: LIDOCAINE 1% LOCAL 20 ML VIAL INFIL PRN (13:36)
[2022-10-01] MEDS ORDERED: OXYTOCIN 30 UNITS/500 ML BAG IV PRN (13:36)
--- NOTE | 2022-10-01 13:44 | History & Physical Report ---
Date of Service October 01, 2022 Assessment & Plan (1) Uterine contractions during : Plan: 32 y/o at 36w2d here for labor check. GBS neg, RI, Rh pos. Ketones in urine. FHT cat II - tachycardia. Contractions may be due to dehydration. IVF. Encourage PO intake. Will monitor. Last pap 05/2020 No STD Hx History of Present Illness Chief Complaint: contractions Primary Care Provider: Pauline Miles, 32 y/o at 36w2d here for labor check. GBS neg, RI, Rh pos. contractions are described as cramping. 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 last baby was 9 years ago and delivered at 39 weeks. Last pap 05/2020 No STD Hx Allergies Allergy/AdvReac Type Severity Reaction Status Date / Time No Known Allergies Allergy Verified 09/24/22 14:53 Home Medications Medication Instructions Recorded Confirmed Type prenat.vits,omari,ulz-[id number] 1 tab PO HS 03/04/22 09/24/22 History diphenhydramine HCl 25 mg capsule 25 mg PO TID PRN Allergy Symptoms 03/12/22 09/24/22 History (Benadryl) ondansetron HCl 4 mg tablet 4 mg PO Q8H 03/12/22 09/24/22 History Patient History Medical History Anxiety Autism Autism spectrum disorder Depression Kidney stones Migraine Ovarian cyst Surgical History No pertinent past surgical history Family History Mother Cervical cancer Grandmother (Maternal) Uterine cancer Social History Smoking Status: Current every day smoker Tobacco Type: E-cigarettes / Vaping Hx Alcohol Use: No Hx Substance Use: No Preferred Language: Faroese Communication Ability: Effective Uke Driver Required: No Beliefs That Will Affect Care: None marital status: marital status details: Pablo (34) [phone] Current Living Situation: Spouse Current Living Situation Comment: and son current occupational status: employed current occupation: [email or web address] Other Information That Helps Us Care for You: No Feels Safe at Home: Yes Safety Concerns: Feels Safe At This Time Assistive Devices: None Review of Systems All systems reviewed & are unremarkable except as noted in HPI & below Physical Exam Constitutional: WD/WN, vitals as above Respiratory: no increased work of breathing Cardiovascular: clinically well perfused Genitourinary: Manual OB Exam: + cervical dilation 3 cm, + cervical effacement 70% and + station -1 OB Exam Monitor Tracing: + external FHT monitor used and + category II (baseline 170s - tachycardia, moderate variability, no decels) Supervising Physician Co-Signing Physician Notes Resident Physician Supervision Note: I interviewed and examined the patient. Discussed with Dr. Clemente and agree with findings and plan as documented in the note. Any exceptions or clarifications are listed here: Patient had large ketones in her urine - will also do IV hydration and recheck cervix in 2-3 hours. Documented By: Tiffany Quinonez MD, FACOG Resident Activity Tracking Resident Involvement: Resident Care Provided Care Provided: OB Delivery
[2022-10-01] MEDS: LACTATED RINGER'S 1,000 ML IV PRN ×2 (14:05→15:12)
[2022-10-01 14:14] LABS: Hematocrit (blood only) 32.2 % (34.1-44.9); Hemoglobin 10.8 g/dl (12.0-16.0); Mean Corpuscular Hemoglobin 29.2 pg (25.0-34.0); Mean Corpuscular Hgb Conc 33.5 g/dL (32.0-36.0); Mean Platelet Volume 9.9 fL (9.4-12.3); Platelet Count 264 K/uL (130-400); RDW Coefficient of Variation 12.6 % (11.5-14.5); RDW Standard Deviation 39.9 fL (36.4-46.3); White Blood Count 9.71 K/ul (4.8-10.8)
--- NOTE | 2022-10-01 19:52 | Labor Progress Brief Note ---
Date of Service October 01, 2022 Subjective Reason For Note: Routine Evaluation Patient has been examined by me 3 times now over the last 6 hours. contractions have spaced out at times & have not been more intense. patient still pretty comfortable with the contractions and does not need to breathe through them. she is also still able to talk while having a contraction. Review of Systems All systems reviewed & are unremarkable except as noted in HPI & below Assessment & Plan (1) Uterine contractions during : Plan: multip at 37 weeks with episodes of regular but mild contractions and cramping with no appreciable cervical change control manager 6 hours will send patient home at this time. signs and symptoms of labor reviewed with patient and her keep next scheduled appt and call PRN with any questions Admission and Anticipated Discharge Date Admission Date: October 01, 2022 Physical Exam Constitutional: WD/WN, vitals as above Psychiatric: A+Ox3, euthymic affect Genitourinary: Manual OB Exam: + cervical dilation (2-3cm), + cervical effacement 50% and + station -2 OB Exam Monitor Tracing: + external FHT monitor used, + external uterine monitor used, + category I (baseline now in 140- 150 range ) and + normal FHT variability Results & Data ([place]) Vital Signs (Past 12 Hours) Vital Signs Temp Pulse Resp BP 10/01/22 19:10 18 10/01/22 19:10 98.1 F 18 10/01/22 19:09 103 H 126/90 10/01/22 17:00 84 125/76 10/01/22 13:50 108 H 124/85 10/01/22 13:34 98.1 F 110 H 20 149/72 H Coding Level of Care Code 24443 Subseq Obs Care Lvl 1 Diagnoses Uterine contractions during O47.9
== END 2022-10-01 19:50 | disposition home or self-care (01) | DRG 833 ==
LOC: OPB 13:32 → 4S1 13:33

== ENCOUNTER 2022-10-03 01:24 | Inpatient (IN) ==
[2022-10-03] MEDS ORDERED: LIDOCAINE 1% LOCAL 20 ML VIAL INFIL PRN (01:43)
[2022-10-03] MEDS ORDERED: OXYTOCIN 30 UNITS/500 ML BAG IV PRN ×3 (01:43→11:03)
--- NOTE | 2022-10-03 01:46 | History & Physical Report ---
Date of Service October 03, 2022 Assessment & Plan (1) with 37 weeks completed gestation: Plan gross srom. admit, category one, gbs neg. expectant management since starting to have some contractions. epidural on demand. Anticipate . History of Present Illness Chief Complaint: rom Primary Care Provider: Pauline Miles DO Patient is a gp with iup at 37 4/7 weeks who presents to labor and delivery c/o rom. Notes was getting ready for bed, felt some, pressure, heard pop and large gush . Still leaking, clear. no vb. NOtes some cramping earlier and now noting some contractions. +fm. uncomplicated. and Delivery Plans Autism ppx hemorrhage 1st - No transfusion prizer x 2, +boster Flu shot given 06/05/22 - [place] [facility] Labs: Blood Type O Positive 03/25/22 Antibody Screen NEGATIVE 03/25/22 Hemoglobin 10.8 g/dl (12.0-16.0) L 10/01/22 Hematocrit 32.2 % (34.1-44.9) L 10/01/22 Mean Corpuscular Volume 87.0 fL (80.0-100.0) 10/01/22 Platelet Count 264 K/uL (130-400) 10/01/22 Rubella IgG Antibody Immune (Immune) 03/25/22 Rapid Plasma Reagin Nonreactive (Nonreactive) 03/25/22 Hepatitis B Surface Antigen. NON-REACTIVE (NON-REACTIVE) 03/25/22 Hepatitis C Antibody (EIA) NON-REACTIVE (NON-REACTIVE) 03/25/22 HIV (1&2) Ag and Ab Confirmation NON-REACTIVE (NON-REACTIVE) 03/25/22 Glucose 1 Hour 50 gm Load 149 mg/dl (70-130) H 05/08/22 Maternal Serum Alpha Fetoprotein 40.0 ng/mL 05/08/22 OB Optional Labs: Chlamydia trachomatis RNA NOT DETECTED (NOT DETECTED) 03/25/22 Neisseria gonorrhoeae RNA NOT DETECTED (NOT DETECTED) 03/25/22 Thyroid Stimulating Hormone (TSH) 1.259 uIu/ml (0.300-4.500) 01/16/22 Alpha Fetoprotein Triple Screen SEE NOTE 05/08/22 Labs Reviewed: neg afp low risk panorama passed 16 week 2 hr gtt gbs neg Allergies Allergy/AdvReac Type Severity Reaction Status Date / Time No Known Allergies Allergy Verified 10/02/22 15:52 Home Medications Medication Instructions Recorded Confirmed Type prenat.vits,omari,[id number] 1 tab PO HS 03/04/22 10/02/22 History diphenhydramine HCl 25 mg capsule 25 mg PO TID PRN Allergy Symptoms 03/12/22 10/02/22 History (Benadryl) ondansetron HCl 4 mg tablet 4 mg PO Q8H 03/12/22 10/02/22 History Patient History Medical History Anxiety Autism Autism spectrum disorder Depression Kidney stones Migraine Ovarian cyst Surgical History No pertinent past surgical history Family History Mother Cervical cancer Grandmother (Maternal) Uterine cancer Social History Smoking Status: Current every day smoker Tobacco Type: E-cigarettes / Vaping Hx Alcohol Use: No Hx Substance Use: No Preferred Language: Belgian Communication Ability: Effective Community Support Specialist Required: No Beliefs That Will Affect Care: None marital status: marital status details: Pablo (34) [phone] Current Living Situation: Spouse Current Living Situation Comment: and son current occupational status: employed 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 Date GA wks Lbr Lgth wt Sex Type del Anes Place Del Prov ? Comment 08/19/13 39 7lb 15oz M Epid ural [facility]. Mojica No Second Degree lac [employer] History noncontributory Physical Exam Constitutional: WD/WN, vitals as above Gastrointestinal (Abdomen): soft, gravid, nt Psychiatric: A+Ox3, euthymic affect Genitourinary: grossly ruptured, clear cx--3/50/-2 toco--q3-5min efm--130s wtih mod variability, accels to 160s, no decels Code Status & VTE Plan VTE Prophylaxis Plan VTE Prophylaxis will be ordered: No Coding Level of Care Code None Diagnoses with 37 weeks completed gestation Z3A.37
[2022-10-03 02:04] LABS: Hematocrit (blood only) 30.5 % (34.1-44.9); Hemoglobin 10.2 g/dl (12.0-16.0); Mean Corpuscular Hgb Conc 33.4 g/dL (32.0-36.0); Mean Corpuscular Volume 86.6 fL (80.0-100.0); Platelet Count 259 K/uL (130-400); RDW Coefficient of Variation 12.7 % (11.5-14.5); RDW Standard Deviation 39.8 fL (36.4-46.3); Red Blood Count 3.52 M/uL (3.93-5.22); White Blood Count 9.01 K/ul (4.8-10.8)
[2022-10-03] MEDS: LACTATED RINGER'S 1,000 ML IV PRN ×2 (04:30→05:36)
[2022-10-03] MEDS ORDERED: ePHEDrine sulfate 50 MG/ML AMP ONE (04:40)
[2022-10-03] MEDS ORDERED: SODIUM CHLORIDE 0.9% INJ 10 ML VIAL ONE (04:41)
[2022-10-03] MEDS ORDERED: fentaNYL citrate 100 MCG/2 ML VIAL ONE (04:41)
[2022-10-03] MEDS ORDERED: BUPIVACAINE 0.25% 30 ML VIAL ONE (04:41)
[2022-10-03] MEDS ORDERED: LIDOCAINE 2%/EPINEPHRINE 1:200,000 20 ML SDV ONE (04:41)
[2022-10-03] MEDS ORDERED: fentaNYL 2MCG/ML ROPIVACAINE 1.25MG/ML 100 ML BAG EPI ONE (04:41)
[2022-10-03] MEDS ORDERED: diphenhydrAMINE 50 MG/ML VIAL IV PRN (05:33)
[2022-10-03] MEDS ORDERED: ePHEDrine sulfate 50 MG/ML AMP IV PRN (05:33)
[2022-10-03] MEDS ORDERED: fentaNYL 2MCG/ML ROPIVACAINE 1.25MG/ML 100 ML BAG EPI PRN (05:33)
[2022-10-03] MEDS ORDERED: NALBUPHINE HCL INJ 10 MG/ML AMP IV PRN (05:33)
[2022-10-03] MEDS ORDERED: NALOXONE HCL 0.4 MG/1 ML VIAL/CARP IV PRN (05:33)
[2022-10-03] MEDS ORDERED: ONDANSETRON INJ 2 MG/ML 2 ML VIAL IV PRN (05:33)
[2022-10-03] MEDS ORDERED: NALOXONE HCL 1 MG in SODIUM CHLORIDE 0.9% 1000ML 1,000 ML IV PRN (05:33)
--- NOTE | 2022-10-03 05:33 | Anesthesiology Consultation ---
Date of Service October 03, 2022 Assessment & Plan Chart Review Chart Review: Patient NOT seen in Pre Admission Testing and Acceptable Risk for Labor Epidural Consults Requested none ASA ASA2 Proposed Anesthesia Anesthesia Type: Labor Epidural Risk / Benefits Reviewed With: PT / POA / Parent / Guardian, Accepts Plan and Informed Consent Obtained History Height/Weight Height: 5 ft 6 in Weight: 72.393 kg Allergies Allergy/AdvReac Type Severity Reaction Status Date / Time No Known Allergies Allergy Verified 10/02/22 15:52 Medications Home Medications Medication Instructions Recorded Confirmed Last Taken prenat.vits,omari,[id number] 1 tab PO HS 03/04/22 10/02/22 09/09/22 diphenhydramine HCl 25 mg capsule 25 mg PO TID PRN Allergy Symptoms 03/12/22 10/02/22 Unknown (Benadryl) ondansetron HCl 4 mg tablet 4 mg PO Q8H 03/12/22 10/02/22 Unknown Active Medications Generic Name Dose Route Start Last Admin Trade Name Freq PRN Reason Stop Dose Admin Lactated Ringer's 1,000 mls @ 125 mls/hr 10/03/22 01:43 10/03/22 04:30 Lr IV 10/05/22 01:42 999 mls/hr .Q8H PRN Administration L&D Protocol Protocol Past Medical History Medical History Anxiety Autism Autism spectrum disorder Depression Kidney stones Migraine Ovarian cyst Exercise / Class Metabolic Activity II 4-5 Yardwork/Stairs/Walk up hill Past Family History Family History Mother Cervical cancer Grandmother (Maternal) Uterine cancer Past Surgical History Surgical History No pertinent past surgical history Past Anesthesia History No Hx of Anesthesia Complications and No Family Hx of Anesthesia Complications History of PONV No Hx of PONV and No Hx of Motion Sickness Social History Smoking Status: Former smoker tobacco type: e-cigarettes Hx Alcohol Use: No Hx Substance Use: No substance use type: does not use Physical Exam Vital Signs Last Vital Signs Temp 36.6 C 10/03/22 04:55 Pulse 98 H 10/03/22 05:31 Resp 20 10/03/22 04:55 BP 135/82 10/03/22 05:31 Pulse Ox 98 10/03/22 05:29 ENMT Mouth: no dentition abnormality Thyromental Distance: > or= 3.5 Finger Breadths Mallampati Class: II Neck normal visual inspection Respiratory normal respiratory effort Auscultation: lungs clear to auscultation bilaterally Cardiovascular Rate/Rhythm: regular rate and regular rhythm Psychiatric Orientation: alert Testing Laboratory Results 10/03/22 01:56 Blood Type O Positive 10/03/22 01:56 Antibody Screen NEGATIVE 10/03/22 01:56
--- NOTE | 2022-10-03 07:28 | Labor Progress Brief Note ---
Date of Service October 03, 2022 Subjective comfortable after epidural Assessment & Plan (1) with 37 weeks completed gestation: Plan augment with pit, fetus category, anticipate . Admission and Anticipated Discharge Date Admission Date: October 03, 2022 Physical Exam Physical Exam: cx--5/100/-2 toco--spaced since contraction, q 5-6 efm--130s wtih mod variability, accels to 160s, no decels Results & Data ([facility]) Vital Signs (Past 12 Hours) Vital Signs Temp Pulse Resp BP Pulse Ox 10/03/22 07:10 36.5 C 16 10/03/22 01:36 36.7 C 18 10/03/22 07:20 98 10/03/22 07:20 108 H 10/03/22 07:20 93 H 117/69 10/03/22 07:15 114 H 98 10/03/22 07:10 118 H 98 10/03/22 07:05 113 H 98 10/03/22 07:04 108 H 109/66 10/03/22 07:00 101 H 98 10/03/22 06:55 124 H 98 10/03/22 06:50 98 10/03/22 06:50 103 H 10/03/22 06:50 92 H 115/68 10/03/22 06:44 123 H 97 10/03/22 06:39 114 H 97 10/03/22 06:34 97 10/03/22 06:34 104 H 10/03/22 06:34 115 H 104/57 L 10/03/22 06:29 90 95 10/03/22 06:24 95 H 98 10/03/22 06:19 120 H 98 10/03/22 06:20 114 H 117/66 10/03/22 05:55 16 10/03/22 05:55 16 10/03/22 06:10 16 10/03/22 06:10 16 10/03/22 06:15 18 10/03/22 06:15 36.6 C 18 10/03/22 06:14 121 H 98 10/03/22 06:09 94 H 98 10/03/22 06:04 96 H 119/74 97 10/03/22 05:59 102 H 98 10/03/22 05:54 93 H 98 10/03/22 05:30 18 10/03/22 05:30 18 10/03/22 05:35 18 10/03/22 05:35 18 10/03/22 05:40 18 10/03/22 05:40 18 10/03/22 05:49 90 121/72 99 10/03/22 05:44 96 H 98 10/03/22 05:39 119 H 99 10/03/22 05:34 94 H 98 10/03/22 05:33 93 H 127/77 10/03/22 05:31 98 H 135/82 10/03/22 05:29 99 H 127/76 98 10/03/22 05:27 95 H 136/74 10/03/22 05:25 87 130/74 10/03/22 05:24 89 99 10/03/22 05:23 86 139/91 10/03/22 05:19 88 99 10/03/22 05:14 93 H 99 10/03/22 05:13 101 H 92 10/03/22 05:09 77 100 10/03/22 05:04 70 99 10/03/22 04:59 86 99 10/03/22 04:55 36.6 C 83 20 141/85 H 10/03/22 04:54 97 H 99 10/03/22 04:45 90 99 10/03/22 04:40 77 97 10/03/22 04:35 88 97 10/03/22 02:07 36.7 C 91 H 18 130/78 Coding Level of Care Code None Diagnoses with 37 weeks completed gestation Z3A.37
[2022-10-03] MEDS ORDERED: SODIUM CHLORIDE 0.9% 250 ML IV PRN (09:52)
--- NOTE | 2022-10-03 10:31 | Delivery Summary ---
Vaginal Delivery Summary Date of Service October 03, 2022 Vaginal Delivery Summary Vaginal Delivery Summary: Pre-delivery diagnoses: 32yo @ 37 4/7, spontaneous labor, h/o PP hemorrhage with G1, autism Post-delivery diagnoses: same Procedure: spontaneous vaginal delivery, manual extraction of placenta, repair of 2nd degree laceration Surgeon: Jacquelyn Myers DO Complications: none Findings: Viable female . Apgars: 8/9. Weight pending, please see redd sery records. Estimated blood loss: 300ml Description of delivery: The patient progressed to complete with epidural anesthesia. She then began to push. She spontaneously vaginally delivered a viable from the cephalic presentation. The head delivered in MEMO position. Tight nuchal cord around neck, delivered through. The anterior shoulder delivered, followed by the posterior shoulder, followed by the body. Cord also wrapped around body. The baby was placed on mother's abdomen and a spontaneous cry was heard. Delayed cord clamping was employed, and the cord was doubly clamped and cut. Cord blood was obtained. Active management of 3rd stage of labor, with only gentle traction on the umbilical cord, it avulsed from the placenta. Therefore, placenta was manually extracted - it came out in pieces. Sweep of the uterine cavity after placental delivery yielded no remaining placental fragments. The uterus and vagina were swept of clots and debris. IV pitocin was given. The uterus became firm. The cervix, vagina, and perineum were inspected and a 2nd degree perineal laceration was noted and repaired in standard fashion with 3-0 Vicryl. Excellent hemostasis was observed . D/t history of hemorrhage with first delivery and manual extraction of placenta with this case, 2u PRBC were type/crossed and placed on hold, however excellent hemostasis was noted after this delivery. The mother and baby are recovering in stable and good condition in the room. Sponge, needle and instrument counts were correct x 2. Jacquelyn Myers DO [facility]
[2022-10-03] MEDS ORDERED: ACETAMINOPHEN 325 MG TAB PO PRN (11:03)
[2022-10-03] MEDS ORDERED: bisacodyL 10 MG SUPP PR PRN (11:03)
[2022-10-03] MEDS ORDERED: DIPHTHERIA/TETANUS/PERTUSSIS 0.5mL SYR/VIAL (Age 7+yrs) IM ONE (11:03)
[2022-10-03] MEDS ORDERED: oxyCODONE/ACETAMINOPHEN 5mg/325mg TAB PO PRN (11:03)
[2022-10-03] MEDS ORDERED: BENZOCAINE 20% AER SPR 82.5 GM CAN EXT PRN (11:03)
[2022-10-03] MEDS ORDERED: HYDROCORTISONE ACETATE 25 MG SUPP PR PRN (11:03)
--- NOTE | 2022-10-03 13:53 | Anesthesia Procedure Note ---
Date of Service October 03, 2022 Anesthesia Post Epidural Note Vital Signs Vital Signs: Temp Pulse Resp BP Pulse Ox 36.8 C 100 H 18 119/71 98 10/03/22 12:07 10/03/22 12:08 10/03/22 12:07 10/03/22 12:08 10/03/22 09:40 Notes Mental Status: alert / awake / arousable and participated in evaluation Nausea / Vomiting: adequately controlled Pain: adequately controlled Airway Patency, RR, SpO2: stable & adequate BP & HR: stable & adequate Hydration State: stable & adequate
[2022-10-03] MEDS: DOCUSATE SODIUM 100 MG CAP PO SCH (20:34)
[2022-10-03] MEDS: IBUPROFEN 600 MG TAB PO PRN (22:57)
[2022-10-04] MEDS: IBUPROFEN 600 MG TAB PO PRN ×2 (03:50→08:14)
[2022-10-04 07:04] LABS: Hematocrit (blood only) 28.4 % (34.1-44.9); Hemoglobin 9.6 g/dl (12.0-16.0); Mean Corpuscular Hemoglobin 29.4 pg (25.0-34.0); Mean Corpuscular Hgb Conc 33.8 g/dL (32.0-36.0); Mean Corpuscular Volume 86.9 fL (80.0-100.0); RDW Coefficient of Variation 12.4 % (11.5-14.5); RDW Standard Deviation 39.3 fL (36.4-46.3); Red Blood Count 3.27 M/uL (3.93-5.22); White Blood Count 15.18 K/ul (4.8-10.8)
[2022-10-04 07:05] LABS: Mean Platelet Volume 10.6 fL (9.4-12.3); Platelet Count 222 K/uL (130-400)
--- NOTE | 2022-10-04 07:37 | Obstetrical Progress Note ---
Date of Service October 04, 2022 Assessment & Plan (1) Supervision of normal intrauterine in multigravida: PPD#1 doing well. . Desires DC home today. Reviewed instructions, followup 6w PP. Subjective Ambulation: ambulating normally Voiding: no voiding problems Diet Tolerance:: regular diet Lochia:: Moderate Review of Systems All systems reviewed & are unremarkable except as noted in HPI & below Physical Exam Constitutional WD/WN, vitals as above no acute distress Respiratory normal respiratory effort Cardiovascular Rate/Rhythm: regular rate and regular rhythm Gastrointestinal (Abdomen) Inspection/Auscultation: abdomen normal to inspection; abdomen not distended Percussion/Palpation: abdomen soft Genitourinary OB Exam Abdomen: + fundal height Fundus: + firm; not tender Results & Data ([facility]) Vital Signs (Past 12 Hours) Vital Signs Temp Pulse Resp BP Pulse Ox O2 Del Method 10/04/22 03:40 36.5 C 80 18 124/85 10/03/22 23:10 36.5 C 91 H 18 136/87 10/03/22 20:00 36.6 C 92 H 18 131/80 97 Room Air
[2022-10-04] MEDS ORDERED: PRENATAL VITAMIN 1 TAB PO SCH (08:00)
[2022-10-04] MEDS: DOCUSATE SODIUM 100 MG CAP PO SCH (08:13)
[2022-10-04] MEDS ORDERED: bisacodyL 5 MG TABEC PO SCH (20:00)
== END 2022-10-04 11:00 | disposition home or self-care (01) | DRG 807 ==
LOC: OPB 01:24 → 4S1 01:26 → 4E2 12:42